=== PATIENT | female | born 1985 | race African-American/Black ===

== ENCOUNTER 2021-01-23 15:54 | Emergency (ER) | payer OTHER ==
[~2021-01-23] VITALS: Ht 170.2 cm; Wt 58.0 kg
[2021-01-23] MEDS ORDERED: ACETAMINOPHEN 325MG TABLET PO STA (17:14)
[2021-01-23 17:31] LABS: BASOPHILS % 0.1 % (0.0-2.0); EOSINOPHILS % 0.5 % (0.0-5.0); HEMOGLOBIN. 13.4 g/dL (12.0-16.0); LYMPHOCYTES % 8.6 % (20.0-50.0); MEAN CORPUSCULAR HEMOGLOBIN 28.9 pg (28.0-32.0); MEAN CORPUSCULAR VOLUME 86.7 fL (81.0-99.0); MEAN PLATELET VOLUME 8.3 fl (7.4-10.4); MONOCYTES % 4.8 % (2.0-8.0); PLATELET 252 x1000/uL (130-400); RED BLOOD CELL COUNT 4.62 mill/uL (4.2-5.4); RED CELL DISTRIBUTION WIDTH 14.4 % (11.6-14.6)
[2021-01-23 17:35] LABS: CLARITY URINE CLOUDY (CLEAR); COLOR URINE DARK YELLOW (YELLOW); KETONES URINE 1+ (NEGATIVE); LEUKOCYTE ESTERASE URINE 1+ (NEGATIVE); NITRITE URINE NEGATIVE (NEGATIVE); OCCULT BLOOD URINE TRACE (NEGATIVE); PROTEIN URINE TRACE (NEGATIVE); SPECIFIC GRAVITY URINE 1.025 (1.005-1.030)
[2021-01-23 17:36] LABS: CHLORIDE 108 mEq/L (98-107)
[2021-01-23 17:48] LABS: HCG SCREEN NEGATIVE
[2021-01-23 17:51] LABS: PROTHROMBIN TIME 10.9 sec (9.6-11.0)
[2021-01-23] MEDS ORDERED: ONDANSETRON 4MG/5ML UDC PO ONE (18:15)
[2021-01-23] MEDS ORDERED: HYDROCODONE/ACETAMINOPHEN 5/325MG TABLET PO ONE (18:15)
[2021-01-23] MEDS ORDERED: KETOROLAC 30MG/ML VIAL IV ONE (18:45)
[2021-01-23] MEDS ORDERED: ONDANSETRON HCL 4MG/2ML INJ IV ONE (18:45)
[2021-01-23] MEDS ORDERED: CEPH500C2 MT (19:00)
[2021-01-23 19:02] VITALS: BP 117/80
== END 2021-01-23 19:14 | disposition home or self-care (01) ==
LOC: ER 15:54
DX: N12 Tubulo-interstitial nephritis, not specified as acute or chronic (principal); I49.9 Cardiac arrhythmia, unspecified; I50.9 Heart failure, unspecified
CPT/HCPCS: 36415; 80053; 81003; 81025; 83690; 84703; 85025; 85610; 93005; 96374; 96375; 99284; J1885; J2405

== ENCOUNTER 2025-05-24 11:44 | Emergency (ER) | payer OTHER ==
[~2025-05-24] VITALS: Ht 154.9 cm; Wt 75.0 kg
[~2025-05-24 11:44] MED LIST: CEPH500C2 MT
[2025-05-24 11:49] VITALS: O2SAT 100
[2025-05-24] MEDS ORDERED: ALBU18HF2 IH (12:57)
[2025-05-24] MEDS ORDERED: P20 PO (12:57)
[2025-05-24] MEDS: PREDNISONE 20MG TABLET PO ONE (13:21)
[2025-05-24] MEDS: ACETAMINOPHEN 650MG/20.3ML UDC PO ONE (13:21)
[2025-05-24 13:30] VITALS: BP 140/96; PULSE 79; RESP 18; TEMP 37; O2SAT 99
== END 2025-05-24 13:35 | disposition home or self-care (01) ==
LOC: ER 11:44
DX: J06.9 Acute upper respiratory infection, unspecified (principal); J45.909 Unspecified asthma, uncomplicated; I50.9 Heart failure, unspecified; Z79.52 Long term (current) use of systemic steroids; Z98.51 Tubal ligation status
CPT/HCPCS: 99283; J7512